=== PATIENT | female | born 1950 | race African-American/Black ===

== ENCOUNTER → 2018-01-13 | Outpatient (CLI) | payer MEDICARE | END | disposition home or self-care (01) | LOC: KCIC CT 13:11 | DX: G44.89 Other headache syndrome (principal); Z85.038 Personal history of other malignant neoplasm of large intestine | CPT/HCPCS: 70450 ==

== ENCOUNTER → 2018-05-27 | Outpatient (CLI) | payer MEDICARE ==
[~2018-05-27] MED LIST: CALC0.25 PO; CHLO25TA PO; CITA10TA4 PO; LEVO25TA4 PO
--- NOTE | 2018-05-27 16:39 | KCIC ---
History: Postmenopausal, osteoporosis screening, calcium use, chemotherapy, history of lumbar fusion. Comparison: June 25, 2007. Findings: Bone Densitometry was performed with dual photon absorption of left hip. Lumbar spine was not imaged secondary to surgery. Left hip: Bone density is 0.857 g/cm2. T-Score is -0.7. Z-score is 0.6. There has been 5.5% decrease in bone mineral density of left hip since previous study. IMPRESSION: Bone mineral density of the left hip appears within normal limits. World Health definition of osteoporosis and osteopenia: Normal = T-Score at or above -1.0; osteopenia = T-score between -1.0 and -2.5; osteoporosis = T-score at or below -2.5 Electronically signed by: Isiah Martin MD (05/27/2018 4:36 PM) [email or web address]
--- NOTE | 2018-05-27 17:09 | KCIC ---
Bone mineral density exam History: Postmenopausal, osteoporosis screening, fusion of the lumbar spine, history of diabetes and chemotherapy Comparison: None Findings: Bone mineral density examination utilizing DEXA was performed. Left forearm mineral density of 0.509 g/cm2 corresponds with a T score -1.1, Z score 0.7. By World Congress on Osteoporosis criteria, a T score of 0 to-1 SD is considered to be within normal limits. A T score of -1 to -2.5 SD is considered osteopenia. A T score less than -2.5 SD is considered osteoporosis Impression: 1. Left forearm bone mineral density corresponds with osteopenia. Electronically signed by: Sohail Briggs MD (05/27/2018 5:06 PM) [id number]
== END | disposition home or self-care (01) ==
LOC: KCIC DEXA 13:49
PROVIDERS: ATTEND Physician Assistant Medical
DX: Z13.820 Encounter for screening for osteoporosis (principal); M85.832 Other specified disorders of bone density and structure, left forearm
CPT/HCPCS: 77080; 77081